=== PATIENT | female | born 1995 | race Caucasian/White ===

== ENCOUNTER 2020-11-04 10:38 | Outpatient (CLI) | payer OTHER, SELFPAY ==
--- NOTE | ~2020-11-04 | US_ITS ---
EXAMINATION: US abdomen limited DATE: 11/04/2020 11:21 INDICATION: Abdominal bloating TECHNIQUE: Multiple grayscale and Doppler ultrasound images of the abdomen were obtained. COMPARISON: 09/03/2011 FINDINGS: The head and body of the pancreas are normal. The pancreatic tail is obscured by bowel gas. The liver is normal with normal echogenicity and echotexture. No surface nodularity. Normal hepatope ric flow in the main portal vein. There is a 3 mm gallbladder polyp. No gallbladder wall thickening, stones, or pericholecystic fluid are identified. The normal common bile duct measures 3 mm. There was no sonographic Toscano sign. IMPRESSION: 1. No sonographic correlate for the patient's symptoms. 2. 3 mm gallbladder polyp. Reviewed, dictated and finalized at location A.
== END 2020-11-04 10:39 | disposition home or self-care (01) ==
PROVIDERS: PCP Registered Nurse; Visit Provider Registered Nurse
DX: R14.0 Abdominal distension (gaseous) (principal); K82.4 Cholesterolosis of gallbladder
CPT/HCPCS: 76705

== ENCOUNTER 2022-01-03 09:54 | Outpatient (CLI) | payer OTHER, SELFPAY | END 2022-01-03 09:55 | disposition home or self-care (01) | LOC: ANHLAB 09:57 | PROVIDERS: PCP Registered Nurse; Visit Provider Obstetrics & Gynecology | DX: R76.9 Abnormal immunological finding in serum, unspecified (principal) | CPT/HCPCS: 36415; 86850 ==

== ENCOUNTER 2022-05-16 12:57 | Outpatient (CLI) | payer OTHER, SELFPAY ==
[2022-05-16 13:22] VITALS: BP 128/87; PULSE 99
[2022-05-16 13:30] VITALS: BP 113/82; PULSE 113
[2022-05-16 13:30] LABS: Basophils Percent Auto 0.3 % (0.2-1.2); Eosinophils Percent Auto 0.3 % (0-4.4); Hematocrit 35.3 % (37.0-47.0); Hemoglobin 11.8 g/dL (12.0-15.0); Immature Granulocyte Absolute 0.04 K/mm3 (0.00-0.031); Immature Granulocyte Percent A 0.4 % (0-0.5); Lymphocytes Absolute Auto 2.01 K/mm3 (0.9-3.2); Mean Corpuscular HGB Conc 33.4 g/dl (32-36); Mean Corpuscular Hemoglobin 30.3 pg (26-34); Mean Corpuscular Volume 90.5 fl (80-100); Mean Platelet Volume 9.3 fl (7.4-10.4); Monocytes Absolute Auto 0.5 K/mm3 (0.1-0.6); Monocytes Percent Auto 4.6 % (2.6-8.5); Neutrophils Absolute Auto 7.5 K/mm3 (1.3-6.7); Neutrophils Percent Auto 74.4 % (45.5-73.1); Platelet Count Result 319 k/mm3 (150-375); Red Cell Distribution Width 12.8 % (11.5-14.5); White Blood Count 10.1 K/mm3 (4.5-10.0)
[2022-05-16 13:31] LABS: Appearance Urine Clear (Clear); Bilirubin Urine Negative (Negative); Blood Urine Negative (Negative); Color Urine Yellow (Yellow); Glucose Urine UA Negative (Negative); Ketones Urine 3+ mg/dL (Negative); Leukocyte Esterase Ur Negative LEU/UL (NEGATIVE); Nitrate Urine Negative (Negative); Protein Urine Negative (Negative); Specific Grav Ur 1.015 (1.001-1.035); Urobilinogen Urine 0.2 mg/dL (<2.0); pH Urine 6.5 (5.0-9.0)
[2022-05-16 13:38] LABS: Creatinine Urine 63.6 mg/dL; Total Protein Urine Random 15 mg/dL; Ur Ttl Prot Creatinine Ratio 0.24 mg/mg (0-0.20)
[2022-05-16 13:40] LABS: Alanine Aminotransferase 33 U/L (6-35); Albumin Level 3.4 g/dL (3.5-5.1); Alkaline Phosphatase 118 U/L (38-126); Anion Gap 4 mmol/L (8-16); Aspartate Amino Transferase 37 U/L (14-36); Bilirubin,Total 0.2 mg/dL (0.2-1.3); Blood Urea Nitrogen 6 mg/dL (7-17); Calcium 8.4 mg/dL (8.4-10.2); Carbon Dioxide 21 mmol/L (22-30); Chloride 105 mmol/L (98-107); Estimated Glomerular Filt Rate > 60; Glucose 106 mg/dL (65-110); Potassium 3.2 mmol/L (3.4-5.0); Sodium 130 mmol/L (137-145); Uric Acid 4.3 mg/dL (2.5-7.5)
[2022-05-16 13:43] LABS: Bacteria Urine Trace /hpf; Squamous Epithelial Cell Urine Rare /hpf (Few); WBC Urine 0-3 /hpf (0-3)
[2022-05-16 13:44] LABS: Add Urine Microscopic? YES
[2022-05-16 13:45] VITALS: BP 117/76; PULSE 89
[2022-05-16 14:00] VITALS: BP 118/70; PULSE 83
[2022-05-16] MEDS: ACETAMINOPHEN 500 MG TABLET 1000 MG PO (14:05)
[2022-05-16 14:23] VITALS: BP 118/70; PULSE 80
== END 2022-05-16 14:55 | disposition home or self-care (01) ==
LOC: ANHOBOP 13:09 → ANHOBPP 13:10
PROVIDERS: PCP Registered Nurse; Visit Provider Obstetrics & Gynecology
DX: O13.9 Gestational [pregnancy-induced] hypertension without significant proteinuria, unspecified trimester (principal); Z3A.00 Weeks of gestation of pregnancy not specified
CPT/HCPCS: 36415; 59025; 80053; 81001; 82570; 84156; 84550; 85025; 87086; 99199; A9270

== ENCOUNTER 2022-05-17 13:59 | Outpatient (NON) | payer OTHER, SELFPAY ==
[2022-05-17 14:16] VITALS: BMI 34.0
[2022-05-17 15:20] LABS: Collection Time Urine 24 HOURS
[2022-05-17 15:25] LABS: Total Volume 24 Hour Urine 2500 ml
[2022-05-17 15:44] LABS: Creatinine Clearance Urine 152.5 ml/min (75-125); Creatinine Urine 57.7 mg/dL; Patient Weight 192 Lbs; Total Protein Urine 24 Hr 425 mg/24hr (28-141); Total Protein Urine Random 17 mg/dL
== END 2022-05-17 14:00 | disposition home or self-care (01) ==
LOC: ANHOBOP 14:05
PROVIDERS: PCP Registered Nurse; Visit Provider Advanced Practice Midwife
DX: Z34.93 Encounter for supervision of normal pregnancy, unspecified, third trimester (principal); Z3A.00 Weeks of gestation of pregnancy not specified
CPT/HCPCS: 81050; 82575; 84156

== ENCOUNTER 2022-05-26 16:51 | Inpatient (IN) | payer OTHER, SELFPAY ==
[2022-05-26] VITALS (13 sets, daily range): BP systolic 122–144; BP diastolic 72–93; PULSE 62–79; RESP 16; TEMP 36.4–36.7; BMI 33.2
--- NOTE | 2022-05-26 17:41 | LDADM ---
This patient, Ting Srinivasan, was admitted to Labor/Delivery/Recovery 105 on 05/26/22 at 16:51. Plans for labor, pain management and were discussed with patient. Patient/family oriented to hospital policies and general routines including ID bracelet, bed and alarms, visiting hours, pain management, procedures, bathroom and other care routines, personal items, smoking policy, room service/diet and guest tray routines, security routines, and visiting hours. Patient/Family are encouraged to report perceived risks to care and to ask questions if they do not understand what they are told or what they should do. See OBIX for further documentation.
[2022-05-26 18:09] LABS: Basophils Percent Auto 0.3 % (0.2-1.2); Eosinophils Absolute Auto 0.1 K/mm3 (0-0.3); Eosinophils Percent Auto 0.4 % (0-4.4); Hematocrit 36.5 % (37.0-47.0); Immature Granulocyte Absolute 0.05 K/mm3 (0.00-0.031); Immature Granulocyte Percent A 0.4 % (0-0.5); Lymphocytes Absolute Auto 2.63 K/mm3 (0.9-3.2); Lymphocytes Percent Auto 22.8 % (18.3-44.2); Mean Corpuscular HGB Conc 32.9 g/dl (32-36); Mean Corpuscular Hemoglobin 30.5 pg (26-34); Mean Corpuscular Volume 92.6 fl (80-100); Mean Platelet Volume 10.4 fl (7.4-10.4); Monocytes Absolute Auto 0.6 K/mm3 (0.1-0.6); Monocytes Percent Auto 5.4 % (2.6-8.5); Neutrophils Absolute Auto 8.2 K/mm3 (1.3-6.7); Neutrophils Percent Auto 70.7 % (45.5-73.1); Platelet Count Result 329 k/mm3 (150-375); Red Blood Count 3.94 M/mm3 (4.2-5.4); Red Cell Distribution Width 12.7 % (11.5-14.5); White Blood Count 11.5 K/mm3 (4.5-10.0)
[2022-05-26] MEDS: DINOPROSTONE 10 MG VAG INSERT VAGINAL (18:20)
--- NOTE | 2022-05-26 19:37 | WPDANESEPP ---
Anes - Eval Pre Procedure Procedure: labor epidural Date/Time: 05/26/22 19:37 Pre Op Diagnosis: Induction of Labor Patient Data Age: 26 Gender: F Height: 1.6 m Weight: 85 kg Last Vital Signs Temp 36.7 C 05/26/22 17:57 Pulse 78 05/26/22 19:31 BP 134/88 05/26/22 19:31 O2 Del Method Room Air 05/26/22 17:40 Allergies Allergy/AdvReac Type Severity Reaction Status Date / Time sulfamethoxazole Allergy Severe Anaphylactic Verified 05/22/22 16:15 Shock latex Allergy Intermediate Itching Verified 05/22/22 16:15 trimethoprim Allergy Mild Anaphylactic Verified 05/22/22 16:15 Shock banana Allergy Itching Verified 05/22/22 16:15 Animal Dander Allergy Mild Congested Uncoded 05/22/22 16:15 Home Medications Medication Instructions Recorded Confirmed Type famotidine 20 mg tablet (Pepcid) 20 mg PO DAILY PRN Acid Reflux 05/22/22 05/22/22 History prenat.vits,aleena,nyl-ceut-hcveg 1 tablet PO HS 05/22/22 05/26/22 History Laboratory Tests 05/26/22 05/26/22 05/26/22 17:14 17:14 17:14 WBC 11.5 K/mm3 H K/mm3 (4.5-10.0) RBC 3.94 M/mm3 L M/mm3 (4.2-5.4) Hgb 12.0 g/dL g/dL (12.0-15.0) Hct 36.5 % L % (37.0-47.0) MCV 92.6 fl fl (80-100) MCH 30.5 pg pg (26-34) MCHC 32.9 g/dl g/dl (32-36) RDW 12.7 % % (11.5-14.5) Plt Count 329 k/mm3 k/mm3 (150-375) MPV 10.4 fl fl (7.4-10.4) Immature Gran % (Auto) 0.4 % % (0-0.5) Neut % (Auto) 70.7 % % (45.5-73.1) Lymph % (Auto) 22.8 % % (18.3-44.2) Colbert % (Auto) 5.4 % % (2.6-8.5) Eos % (Auto) 0.4 % % (0-4.4) Baso % (Auto) 0.3 % % (0.2-1.2) Lymph # (Auto) 2.63 K/mm3 K/mm3 (0.9-3.2) Colbert # (Auto) 0.6 K/mm3 K/mm3 (0.1-0.6) Eos # (Auto) 0.1 K/mm3 K/mm3 (0-0.3) Baso # (Auto) 0.0 K/mm3 K/mm3 (0.0-0.1) Abs Immat Gran (auto) 0.05 K/mm3 H K/mm3 (0.00-0.031) Absolute Neuts (auto) 8.2 K/mm3 H K/mm3 (1.3-6.7) Absolute Nucleated RBC 0.0 K/mm3 K/mm3 (0.0-0.012) Nucleated RBC % 0.0 % % (0.0-0.2) RPR Pending Blood Type A Positive Antibody Screen Negative Patient hx anesthesia problems: none Family hx anesthesia problems: none Results Review: All pre-operative results and documents have been reviewed as part of the pre-operative evaluation. [facility] Past Medical History Medical History (Updated 05/26/22 @ 19:38 by Cathy Macario CRNA) Pre-eclampsia added to pre-existing hypertension Family History Family History Grandparent Hypertension Grandparent Heart attack Social History Social History Smoking status: Never smoker Substance use: never Lack of Transportation: No Lack of Food: Never True Current Housing: I Have Housing Concerned About Future Housing: No Difficulty Paying Gas/Electric Bills: No Difficulty Paying for Meds: No Currently Unemployed: No Education: Master's Degree or Higher Difficulty w/ Childcare or Family Care: No Spiritual care concerns: No Exam Day of Procedure 05/26/22 19:37 Patient weight: obese Heart: regular rate and rhythm Lungs: normal air movement Airway: Mallampati scale Neurological: alert and oriented
[2022-05-27] VITALS (71 sets, daily range): BP systolic 111–243; BP diastolic 63–231; PULSE 58–120; RESP 18; TEMP 36.4–36.7; O2SAT 97–100
--- NOTE | 2022-05-27 08:47 | WPDHPUPDATE1 ---
History and Physical Update Update Date/Time: 05/27/22 08:47 this patient is a 26-year-old 1 at 37 weeks gestation and whose pregnancies complicated by preeclampsia, growth restriction, preeclampsia is marked by mildly elevated liver enzymes proteinuria. She is asymptomatic today and her blood pressures are stable. We began induction of labor with Cervidil, no change after 12 hours are unsatisfactory change we have inserted Cytotec. Reassuring heart tones. Patient plans to have epidural. History and Physical has been reviewed, including an updated exam of the patient. There are NO changes in the patient's condition. Risks, benefits, and alternatives have been discussed and questions answered. Patient agrees to proceed with procedure.
[2022-05-27] MEDS: miSOPROStol 25 MCG TABLET VAGINAL ×2 (08:50→13:33)
[2022-05-27 16:00] LABS: Rapid Plasma Reagin Non-Reactive (NonReactive)
[2022-05-27] MEDS: LACTATED RINGERS 1,000 ML 125 ML IV CONT (17:48)
[2022-05-27] MEDS: OXYTOCIN 30 UNITS/NS 500 ML 30 UNITS/500 ML BAG 6 UNITS IV CONT (17:48)
[2022-05-27] MEDS: DINOPROSTONE 10 MG VAG INSERT VAGINAL (18:38)
[2022-05-27] MEDS: ONDANSETRON INJ 4 MG/2 ML VIAL IV PUSH (20:53)
[2022-05-27] MEDS: fentaNYL CITRATE INJ (*CRX) 100 MCG/2 ML VIAL 50 MCG IV PUSH (21:20)
--- NOTE | 2022-05-27 23:12 | PM.OBPRVD ---
OB - Delivery Note Procedure Procedure: Induction method: Per Misoprostol Protocol, Per Pitocin Protocol and Per Cervidil Protocol Route of delivery: Episiotomy description: None Laceration Description: None and Periurethral (1st degree) Delivery repair: vicryl Quantitative Blood Loss (ml): 100 [place] Baby Date of : 05/27/22 Time of : 23:01 Weeks of gestation at delivery: 37 Weight (pounds): 5 Weight (ounces): 8 presentation: vertex Placenta delivery description: Spontaneous score one minute: 8 score five minutes: 9
[2022-05-28] VITALS (12 sets, daily range): BP systolic 110–134; BP diastolic 73–89; PULSE 73–94; RESP 16–18; TEMP 36.4–37.1; O2SAT 97–98
[2022-05-28 05:34] LABS: Hematocrit 32.4 % (37.0-47.0)
[2022-05-28] MEDS: DOCUSATE SODIUM 100 MG CAPSULE PO (09:53)
[2022-05-28] MEDS: MULTIVIT/MIN/PREN/FOL AC/IRON TABLET 1 TAB PO (09:53)
[2022-05-28] MEDS: LANOLIN (LANSINOH) 7.5 GM CREAM 1 APPLIC TOPICAL (09:53)
--- NOTE | 2022-05-28 11:55 | PM.OBPNVD ---
OB - PN: Subj Subjective Date/time seen: 05/28/22 11:55 Patient comments: no complaints, pain well controlled, incisional pain, tolerating diet and flatus present OB - PN: Obj Data Labs 05/28/22 05:22 Labs: Laboratory Results - last 24 hr 05/26/22 05/28/22 17:14 05:22 Hgb 11.0 L Hct 32.4 L RPR Non-reactive OB - PN A/P Plan day: 1 Plan: routine care Comments: No problems, routine care Time Spent With Patient Time: Total time spent is greater than 50% in coordination of care (as documented) at patient's floor/unit and/or counseling patient: Exam Const: General: comfortable, no acute distress and alert Resp: Effort & Inspection: normal respiratory effort Auscultation: no crackles, no rales and no rhonchi Cardio: Rate: regular rate Heart sounds: no click, no murmurs and no rubs GI: Inspection: non-distended GI Palp: No Tenderness to palpation present (GI) Auscultation: normal bowel sounds Other: Incision - CDI Extrem: General: normal to inspection, no pedal edema and no calf tenderness
--- NOTE | 2022-05-28 13:00 | WPDANLDPN2 ---
Anes-Prog Note L&D Date/Time: 05/28/22 13:00 Neuro status: Neuro function grossly intact. Vital Signs: Last Vital Signs Temp 37.1 C 05/28/22 12:00 Pulse 75 05/28/22 12:00 Resp 16 05/28/22 12:00 BP 129/76 05/28/22 12:00 Pulse Ox 98 05/28/22 12:00 O2 Del Method Room Air 05/26/22 17:40 Pain score (VAS): 0 I/O: Intake & Output 05/27/22 05/28/22 05/28/22 23:59 07:59 15:59 Intake Total 300 Output Total 100 Balance -100 300 Patient feedback: Patient satisfied with anesthetic care.
[2022-05-28] MEDS: IBUPROFEN 600 MG TABLET PO (14:00)
--- NOTE | 2022-05-28 15:30 | PC.NURSE ---
[id number] Introductions were made, then consulted with patient to assess needs related to . Mother led the conversation with her?plans to feed?her infant and the?experience so far. Mother requested assistance related to reluctant to wake and breastfeed being a late less than 24 hours old. Mother works well with her infant with encouragement and education. Encouraged understanding of the benefits of skin to skin (demonstrating unwrapping and placing vertically on her chest), responsive feeding and how to watch for early feeding signs, frequency of feeding on demand aiming for 8-12 times in 24 hours (every 2-3 hours), milk production, duration of feeding, signs of adequate intake/output, massage touch with changing 's position for stimulation, practicing the skill of hand expression, then finger feeding colostrum to her and how to record on the feeding sheet. Infant is sleepy and reluctant to wake to breastfeed. Discussed the risks and benefits of stimulating with pumping. Mother made an informed decision to initiate pumping. [id number] Breast pump provided due to ineffective . Instructions given on cleaning, care, usage, that there should be no pain, pumping schedule for milk production, collection, and storage of human milk. Parents are encouraged to record pumping schedule on the feeding sheet. Patient was assessed for correct placement, flange size, to pump for comfort and nipple stretching/stimulation for adequate milk production every 3 hours (8 times in 24 hours) 1-2 times at night. Mother voiced understanding of the education shared along with mom and baby guide for additional resource information. Reported to the primary RN. [phone] Consulted with patient to assist with encouraging . After stimulating infant S2S with massage touch and changing positioning for 20 minutes feeding cues were visualized. Mother was encouraged to practice sandwich holding her breast with cross cradle. Mother is uncomfortable with positioning and giving great efforts. Reviewed positioning and ear, shoulder, hip alignment, supporting the breast, asymmetrical latch (off-center), and leading with the chin with a big, open, wide gape. The couplet is disorganized and is guided with maximum assistance. Football position is more comfortable for mother but has less efforts in that position. A decision was made to use laid-back positioning to allow infant to demonstrate crawling and seeking the breast independently with efforts visualize. Infant latched optimally to the left breast in a laid-back position. Education given to mother of how to visualize suck/swallow ratios and drinking at the breast. was able to maintain latch without discomfort to mother for a few sucks on 5 different attempts; however, did not maintain adequate nursing duration. Decision was made to take a break, then mother will pump her breast for stimulation. Reviewed good handwashing when or touching the breast/nipples to prevent infection. Resources used to facilitate learning were used with the visual handouts, tool mom and baby guide. Mother voiced understanding of responsive feedings, stimulating with skin to skin, hand expressed colostrum, massage touch, talking to to encourage if it has been 2 -3 hours since the start of the last , to call if infant does not latch or there is discomfort with . Reported to the primary RN. [id number] Mother called RN to the room to check for colostrum after pumping. Evidence of pumping the areola was visualized and mother was encouraged to pump again with the assistance of the RN for placement of the flanges. Reported to Primary RN. [phone] Mother finger-fed the few drops of colostrum that was pumped to her . POC to continue to check 's blood sugars, use skin to skin, attempt to breastfeed and pump breast for stimulation. Mo
--- NOTE | 2022-05-28 16:36 | PC.NURSE ---
[id number] Purposefully rounded to assist with . rarely crawls, seeks and attempts to latch. When infant does latch it is shallow or not maintained for more than a few sucks. Mother is encouraged to practice skin to skin, attempting to latch infant when infant demonstrates feeding cues, pumping her breast for stimulation. Mother has decided to supplement her infant due to blood sugar dropping and infant's mouth becoming dry. Encouraged mother to pace bottle feed if she chooses to supplement with a bottle. Primary RN is present for POC.
[2022-05-29] MEDS: IBUPROFEN 600 MG TABLET PO (05:00)
[2022-05-29 08:05] VITALS: BP 135/90; PULSE 66; RESP 16; TEMP 37.2; O2SAT 99
--- NOTE | 2022-05-29 08:29 | PM.OBPNVD ---
OB - PN: Subj Subjective Date/time seen: 05/29/22 08:29 Patient comments: no complaints, pain well controlled and tolerating diet OB - PN: Obj Data Labs 05/28/22 05:22 OB - PN A/P Plan day: 2 Plan: routine care and discharge home Time Spent With Patient Time: Total time spent is greater than 50% in coordination of care (as documented) at patient's floor/unit and/or counseling patient: Exam Const: General: comfortable and no acute distress Resp: Effort & Inspection: normal respiratory effort Auscultation: no rales, no rhonchi and no wheezes Cardio: Rate: regular rate Heart sounds: no click, no murmurs and no rubs GI: GI Palp: Yes Soft to palpation and No Tenderness to palpation present (GI) Auscultation: normal bowel sounds Extrem: General: normal to inspection, no pedal edema and no calf tenderness
--- NOTE | 2022-05-29 08:30 | PM.OBDSVD ---
DS: Admitting Diagnosis Discharge Date 05/29/22 Admitting Diagnosis term OB - DS: Summary OB Procedures : None OB Procedures Intrapartum: Spontaneous Vag Delivery OB Procedures: : None Time Spent with Patient Time attestation: Total time spent providing and/or coordinating discharge services: DS: Data Data Completed and Pending Pending studies at discharge: Pending at discharge 05/28/22 01:57 Surgical [PTH] Routine Discharge Plan Discharge Discharging Clinician: Ugo Deng Patient Disposition: Home, Self-Care Activity: pelvic rest Diet: regular Patient Instructions: Antibiotic Form Stand Alone Forms: General Discharge Information Follow-up/Referrals: Ugo Deng MD [Physician] - Discharge Medications: Continued famotidine [Pepcid] 20 mg Tablet 20 mg PO DAILY PRN (Reason: Acid Reflux) #2 Tablet 1 tablet PO HS Date of admission: 05/26/22 16:51 Primary Care Provider: KathrineGayatri Admitting Provider: Ugo Deng Attending physician on admission: Ugo Deng Condition: Stable
[2022-05-29] MEDS: TETANUS,DIPHTHERIA,AC PERTUSSIS ADULT (0.5 ML) BOOSTRIX IM (11:45)
--- NOTE | 2022-05-29 15:21 | PC.NURSE ---
1144 - Mother led the conversation with her experience and plan to feed her so far and her ability to continue with the plan of attempting to breastfeed, pump breast for a milk supply, then supplement with formula until her milk is to full volume to feed . Mother is feeding appropriately for growth of and understands stimulating infant to eat if needed. has had appropriate feedings in the last 24 hours meets the outcomes for weight, output and jaundice at this time. Mother states she is confident to continue to feed her at home or when to call for assistance and denies any additional assistance or education at this time. Reinforced understanding of milk production, transition of milk, signs of adequate intake, prevention/relief of engorgement, responsive after visualizing feeding cues, the different methods of stimulating to breastfeed 2-3 hours after the start of the last feeding, community resources, medication information reviewed per [facility] and when to call a provider using the resource of the mom and baby guide. Mother voiced understanding of the education shared. Reported to the primary RN.
[2022-05-30 09:46] VITALS: BP 138/103; PULSE 76; RESP 16; TEMP 36.7; O2SAT 99
== END 2022-05-29 12:25 | disposition home or self-care (01) | DRG 807 ==
LOC: ANHLDR 16:55 → ANHOB2 05-28 01:45
PROVIDERS: Admitting Provider Obstetrics & Gynecology; PCP Registered Nurse; Visit Provider Obstetrics & Gynecology
DX: O14.04 Mild to moderate pre-eclampsia, complicating childbirth (principal); Z37.0 Single live birth; O70.0 First degree perineal laceration during delivery; O36.5930 Maternal care for other known or suspected poor fetal growth, third trimester, not applicable or unspecified; Z3A.37 37 weeks gestation of pregnancy
CPT/HCPCS: 36415; 85014; 85018; 85025; 86592; 86850; 86900; 86901; 88307; 90715; A9270; J2405; J2590; J2795; J3010; J7120

== ENCOUNTER 2023-02-11 16:24 | Emergency (ER) | payer OTHER, SELFPAY ==
--- NOTE | ~2023-02-11 | XR_ITS ---
EXAM: XR lumbar spine 2-3V DATE: 02/11/2023 17:47 HISTORY: Lower back pain, back spasms since 1 today. . COMPARISON: 01/19/2014. FINDINGS: 5 nonrib-bearing lumbar-type vertebral bodies. Bilateral partial L5 sacralization. Incompl ete posterior arch at L5. Pedicles intact. Normal vertebral body alignment. Vertebral body heights pr eserved. Disc spaces maintained. Normal facets and posterior elements. No fracture or dislocation. IMPRESSION: No acute fracture or traumatic malalignment detected in the lumbar spine. Reviewed, dictated and finalized at location K.
[2023-02-11 16:29] VITALS: BP 124/89; PULSE 81; RESP 16; TEMP 36.8; O2SAT 100
[2023-02-11] MEDS: SODIUM CHLORIDE 0.9% IV 1,000 ML 999 ML IV CONT (17:15)
[2023-02-11] MEDS: diazePAM INJ (*CRX) 10 MG/2 ML SYRINGE 2 MG IV PUSH (17:16)
[2023-02-11] MEDS: KETOROLAC 30 MG/ML VIAL (*BKC) IV PUSH (17:18)
--- NOTE | 2023-02-11 18:09 | ED.BACK ---
HPI - Back Pain/Injury General Chief Complaint: Back Pain/Injury Stated Complaint: back pain Time Seen by Provider: 02/11/23 16:35 History of Present Illness HPI Narrative: Patient is a 27-year-old female who presents ER with low back pain. Sudden onset this morning. Has waves of cramping. She was getting off the toilet when it started. No falls or injury. Recently diagnosed with COVID-19 after going on a [employer]. No chest pain or chest pressure or difficulty breathing at this time. No lower extremity numbness or weakness. No difficulty with urination/defecation. No known trauma. Related Data Home Medications Medication Instructions Recorded Confirmed famotidine 20 mg tablet (Pepcid) 20 mg PO DAILY PRN Acid Reflux 05/22/22 05/22/22 prenat.vits,aleena,cja-rxix-jkeuv 1 tablet PO HS 05/22/22 05/26/22 Allergies Allergy/AdvReac Type Severity Reaction Status Date / Time sulfamethoxazole Allergy Severe Anaphylactic Verified 02/11/23 16:31 Shock latex Allergy Intermediate Itching Verified 02/11/23 16:31 trimethoprim Allergy Mild Anaphylactic Verified 02/11/23 16:31 Shock banana Allergy Itching Verified 02/11/23 16:31 Animal Dander Allergy Mild Congested Uncoded 05/22/22 16:15 Review of Systems Review of Systems: All systems reviewed & are unremarkable except as noted in HPI and below Constitutional: Constitutional: Denies chills, Reports fatigue and Denies fever(s) ENT: Reports sore throat Respiratory: Respiratory: Reports cough, Denies dyspnea and Denies wheezing Musculoskeletal: Musculoskeletal: Reports back pain, Denies arthralgias and Denies joint swelling Neurologic: Denies syncope, Denies focal weakness and Denies numbness [facility] Past Medical History Medical History (Updated 02/11/23 @ 18:14 by Sarath Slater MD) Pre-eclampsia added to pre-existing hypertension Surgical History Surgical History (Updated 02/11/23 @ 18:14 by Sarath Slater MD) No pertinent past surgical history Family History Family History Grandparent Hypertension Grandparent Heart attack Social History Social History Smoking status: Never smoker Substance use: never Lack of Transportation: No Lack of Food: Never True Current Housing: I Have Housing Concerned About Future Housing: No Difficulty Paying Gas/Electric Bills: No Difficulty Paying for Meds: No Currently Unemployed: No Education: Master's Degree or Higher Difficulty w/ Childcare or Family Care: No Spiritual care concerns: No Exam Narrative: GENERAL: Well-appearing, well-nourished, and in no acute distress. HEAD: Normocephalic, atraumatic. CHEST: Clear to auscultation. No respiratory distress. HEART: Regular rate and rhythm. Normal peripheral pulses. Back: No reproducible midline tenderness of the T/L-spine. There is mild low back discomfort in the paraspinal musculature but no palpable spasm. EXTREMITIES: Normal range of motion. No edema. SKIN: Warm, dry, no rash. NEURO: Alert and oriented x3. PSYCH: Normal mood and affect. Course Course Emergency Course: Patient had increased pain after exam however it dissipated after medication. Vital Signs Vital signs: Vital Signs Temperature 98.2 F 02/11/23 16:29 Pulse Rate 81 02/11/23 16:29 Respiratory Rate 16 02/11/23 16:29 Blood Pressure 124/89 02/11/23 16:29 Pulse Oximetry 100 02/11/23 16:29 Temperature 98.2 F 02/11/23 16:29 Pulse Rate 81 02/11/23 16:29 Respiratory Rate 16 02/11/23 16:29 Blood Pressure 124/89 02/11/23 16:29 Pulse Oximetry 100 02/11/23 16:29 MDM - Back Pain/Injury MDM Narrative Medical decision making narrative: -Presentation: 27-year-old female presents to the ER with low back pain. -DDX includes but is not limited to: Muscle spasm, lumbar fracture, disc herniation.
== END 2023-02-11 18:26 | disposition home or self-care (01) ==
PROVIDERS: Emergency Provider Emergency Medicine; PCP Registered Nurse
DX: M62.830 Muscle spasm of back (principal)
CPT/HCPCS: 72100; 96374; 96375; 99284; J1885; J3360; J7030

== ENCOUNTER 2025-01-26 16:22 | Outpatient (CLI) | payer OTHER, SELFPAY ==
--- OUTSIDE RECORDS SUMMARY | 2025-01-26 16:34 | XMS_ITS | Encounter Summary ---
Author Organization [facility] Address [facility] [place] [address] Care Team Providers Care Crane Follower Name Role Phone Nicholas Chisholm Primary Care Provider [phone] Encounter Details Date Type Department Care Team (Late st Contact Info) Description 04/02/2021 [employer] Message Enc [facility] Family & Internal Medicine [facility] [address] [place] [address] Nicholas Chisholm APNP [address] [place] [address] RE: Follow Up/Update Social History Tobacco Use Types Packs/Day Years Used Date Smoking Tobacco: Never Smokeless Tobacco: Never Alcohol Use Standard Drinks/Week Comments Yes 0 (1 standard drink = 0.6 oz pur e alcohol) social. (weekneds.) PHQ-2 Answer Date Recorded PHQ-2 Score - If the patient scores above 3, please move on to questions 3-9 0 10/30/2020 Comments Unknown Sex and Gender Information Value Date Recorded Sex Assigned at Not on file Legal Sex Female 6:55 PM CDT Gender Identity Not on file Sexual Orientation Not on file COVID-19 Exposure Response Date Recorded In the last month, have you been in contact with someone who was confirmed or suspected to have Coronavirus / COVID-19? No / Unsure 04/04/2021 9:20 AM CDT documented as of this encounter Plan of Treatment Not on file documented as of this encounter Results * XR KNEE LT 3V (04/04/2021 9:27 AM CDT) Anatomical Region Laterality Modality Knee Radiographic Stefanie ging 04/04/2021 11:2 3 AM CDT Impressions 04/04/2021 11:24 AM CDT IMPRESSION: No significant radiographic abnormality. Referred By: NICHOLAS CHISHOLM Interpreted By: Quan Layton MD, 04/04/2021 11:23 AM Narrative 04/04/2021 11:24 AM CDT Examination: XR KNEE LT 3V Exam time: 04/04/2021 9:20 AM Clinical history: Pain left knee. No known injury. Comparison: No prior exam Technique: AP, lateral, and sunrise views Findings: Medial, lateral, and patellofemoral joint spaces appear normal. No evidence of fracture or acute osseous abnormality. No radiographic evidence of joint effusion. Quadriceps and patella tendon soft tissue densities appear normal. If symptoms continue, follow-up left knee radiograph could be obtained in 10-14 days to evaluate for potential occult osseous healing changes. Procedure Note Quan Layton MD - 04/04/2021 Examination: XR KNEE LT 3V Exam time: 04/04/2021 9:20 AM Clinical history: Pain left knee. No known injury. Comparison: No prior exam Technique: AP, lateral, and sunrise views Findings: Medial, lateral, and patellofemoral joint spaces appear normal.No evidence of fracture or acute osseous abnormality. No radiographicevidence of joint effusion. Quadriceps and patella tendon soft tissuedensities appear normal. If symptoms continue, follow-up left kneeradiograph could be obtained in 10-14 days to evaluate for potentialoccult osseous healing changes. IMPRESSION: No significant radiographic abnormality. Referred By: NICHOLAS CHISHOLM Interpreted By: Quan Layton MD, 04/04/2021 11:23 AM us Nicholas Chisholm APNP GENERAL IMAGING Final Resul t documented in this encounter Visit Diagnoses Diagnosis Left knee pain- Primary Pain in joint, lower leg documented in this encounter Additional Health Concerns Assessment Noted Time PHQ-9 Depression Total Score: 3 10/31/19 21 11:38 AM CDT documented as of this encounter Care Teams Crane Follower Relationship Specialty Start Date End Date Nicholas Chisholm APNP [address] [place] [id number] PCP - General NURSE PRACTITIONER 10/30/20 documented as of this encounter
--- OUTSIDE RECORDS SUMMARY | 2025-01-26 16:34 | XMS_ITS | Encounter Summary ---
Author Organization [facility] Address [facility] [place] [address] Care Team Providers Care Primer Charger Name Role Phone Gayatri Chisholm Primary Care Provider [phone] Encounter Details Date Type Department Care Team (Late st Contact Info) Description 10/22/2022 [employer] Message Enc [facility] Family & Internal Medicine [facility] [address] [place] [address] Gayatri Chisholm APNP [address] [place] [address] Sinus infection/medication Social History Tobacco Use Types Packs/Day Years [...] on file Sexual Orientation Not on file documented as of this encounter Progress Notes * Katya Neves MA - 10/28/2022 3:34 PM CDT Telephoned pt. Left message on letting her know Gayatri does not think it would be safe to take prednisone while breast feeding. She can contact office with any questions are concerns via are my chart. * DONOVAN Fernandez - 10/28/2022 3:33 PM CDT If she is , I do not think prednisone would be safe. * Selin Quinones - 10/27/2022 2:23 PM CDT Pt. Called a back and states she not but is breast feeding and relayed the message. Unaware if medications can be taken while breast feeding so a message was sent back to provider * Chaparrita Bass MA - 10/27/2022 2:13 PM CDT This CAITIE left voicemail for patient to return call to office 10/27/22 and [employer] message sent to patient. * DONOVAN Fernandez - 10/27/2022 12:42 PM CDT Can reach out to pt and if no chance of , we can send over a few days of prednisone if shecan tolerates steroids. Prednisone 20 mg, take 2 tabs once daily for 2 days and one tab once daily for 2 days, #6, no refills * DONOVAN Fernandez - 10/27/2022 12:41 PM CDTFrom: Ting Srinivasan To: Gayatri Chisholm Sent: 10/22/2022 11:59 PM CDT Subject: Sinus infection/medication Hello, So I???ve had a bad sinus infection since , last week and it feels like it isn???t getting any better. I had an appointment with [facility] on Thursday, since you don???t have any available appointments right now. They prescribed me amoxicillin, which I started Thursday night. I would contact the m again but my insurance isn???t accepted through them. But, I???ve had muffled and fullness in my ears since Thursday, and it???s only getting worse. Is there anything you can give me to help with that. It is driving me crazy, and I actually think that???s what making feel worse. Thank you, Ting Srinivasan documented in this encounter Plan of Treatment Not on file documented as of this encounter Visit Diagnoses Not on filedocumented in this encounter Additional Health Concerns Assessment Noted Time PHQ-9 Depression Total Score: 3 10/31/19 21 11:38 AM CDT documented as of this encounter Care Teams Primer Charger Relationship Specialty Start Date End Date Gayatri Chisholm APNP [address] [place] [id number] PCP - General NURSE PRACTITIONER 10/30/20 documented as of this encounter
--- OUTSIDE RECORDS SUMMARY | 2025-01-26 16:34 | XMS_ITS | Clinical Summary ---
Author Organization [facility] Address [facility] [place] [address] Care Team Providers Care Public Health Assistant Name Role Phone Kathrine Gayatri Sergo MAN Primary Care Provider Allergies Active Allergy Reactions Criticality Noted Date Comments Banana Unknown 06/02/2013 Sulfamethoxazole-Trimethopr im Hives,Shortness of Breath High 06/02/2013 Medications 28-0.8 MG tablet Take 1 tablet by mouth daily. Active omeprazole (PRILOSEC) 20 MG capsuleIndications: Left upper quadrant pain Take 1 capsule (20 mg total) by mouth daily. 30 capsule 1 4 Active ondansetron (ZOFRAN-ODT) 4 MG disintegrating tabletIndications:N ausea Take 1 tablet (4 mg total) by mouth every 8 (eight) hours as needed. 20 tablet 4 Active Active Problems No known active problems Immunizations Immunization Administration Dates Next Due Influenza (Generic) 03/14/2019 Influenza Adult (Generic) 04/19/2024,03/17/2016, 07/25/2015 MMR 08/02/2015,01/29/1999,10/08/1994 Opv 01/29/1999,01/07/1994,1993 ,1993 Tdap (Generic) 08/02/2015 Family History Medical History Relation Comments COPD Maternal Grandfather leukemia Maternal Grandfather COPD Maternal Grandmother Hypertension Maternal Grandmother Stroke Maternal Grandmother Arthritis Mother Asthma Mother Heart Attack Paternal Grandfather Colon Cancer Paternal Grandmother Relation Status Comments Father Alive Maternal Grandfather Alive Maternal Grandmother Alive Mother Alive Paternal Grandfather Paternal Grandmother Sister Alive Social History Tobacco Use Types Packs/Day Years Used Date Smoking Tobacco: Never Smokeless Tobacco: Never Tobacco Cessation:Counseling Given: No Alcohol Use Standard Drinks/Week Comments Yes 0 (1 standard drink = 0.6 oz pur e alcohol) social. (weekneds.) PHQ-2 Answer Date Recorded PHQ-2 Score - If the patient scores above 3, please move on to questions 3-9 0 10/30/2020 Comments No Sex and Gender Information Value Date Recorded Sex Assigned at Not on file Legal Sex Female 6:55 PM CDT Gender Identity Not on file Sexual Orientation Not on file Last Filed Vital Signs Vital Sign Reading Time Taken Comments Blood Pressure 116/72 05/26/2024 11:32 AM SHIPPING LEAD PERSON Pulse 82 05/26/2024 11:32 AM SHIPPING LEAD PERSON Temperature 36.7 C (98 F) 05/26/2024 11:32 AM SHIPPING LEAD PERSON Respiratory Rate 18 05/26/2024 11:32 AM SHIPPING LEAD PERSON Oxygen Saturation 99% 05/26/2024 11:32 AM SHIPPING LEAD PERSON Inhaled Oxygen Concentration - - Weight 75 kg (165 lb 4.8 oz) 05/26/2024 11:32 AM SHIPPING LEAD PERSON Height 162.6 cm (5' 4) 05/26/2024 11:32 AM SHIPPING LEAD PERSON Body Mass Index 28.37 05/26/2024 11:32 AM SHIPPING LEAD PERSON Plan of Treatment Health Maintenance Due Date Last Done Comments Annual Physical 1996 Hepatitis B Vaccines (1 of 3 - 19+ 3-dose series) 2012 HPV Vaccines (1 - 3-dose SCD M series) 2020 Cervical Cancer Screening Pa p with HPV Testing (Age 30 to 64) Every 5 Years 2023 11/13/2021 COVID-19 Vaccine ( - 2023-2 5 season) 2024 PHQ-2 (Physician [place]) 06/15/2024 DTaP, Tdap and Td Vaccines ( 2 - Td or Tdap) 08/02/2025 08/02/2015 Cervical Cancer Screening Pa p Smear (Age 30 to 64) Every 3 Years 01/01/2026 01/01/2023, 11/13/2021, 11/08/2020 Cervical Cancer Screening wi th HPV 01/01/2026 Hepatitis C Completed 12/05/2021, 12/05/2021 Meningococcal B Vaccine Aged Out No l onger eligible based on patient's age to complete this topic Meningococcal Vaccine Aged Out No verena sandra eligible based on patient's age to complete this topic Pneumococcal Vaccine: Pediatrics (0 to 5 Years) and At-Risk Patients (6 to 49 Years) Aged Out No longer eligible b ased on patient's age to complete this topic RSV Immunizations Under 20 Months Aged Out No longer eligible b ased on patient's age to complete this topic Insurance [employer] Care Teams Public Health Assistant Relationship Specialty Start Date End Date Gayatri Chisholm APNP [address] [place] [id number] PCP - General NURSE PRACTITIONER 10/30/20
[2025-01-26 16:45] VITALS: BP 123/78; PULSE 84
[2025-01-26 16:46] VITALS: BP 121/83; PULSE 69
[2025-01-26 17:00] VITALS: BP 117/81; PULSE 80
[2025-01-26 17:07] LABS: Add Urine Microscopic? YES; Appearance Urine Clear (Clear); Glucose Urine UA Negative (Negative); Hematocrit 32.7 % (37.0-47.0); Hemoglobin 11.1 g/dL (12.0-15.0); Immature Granulocyte Percent A 0.5 % (0-0.5); Leukocyte Esterase Ur 2+ LEU/UL (Negative); Lymphocytes Absolute Auto 2.88 K/mm3 (0.9-3.2); Mean Corpuscular HGB Conc 33.9 g/dl (32-36); Mean Corpuscular Hemoglobin 30.4 pg (26-34); Mean Corpuscular Volume 89.6 fl (80-100); Nitrate Urine Negative (Negative); Non Pathogenic Casts 0-2; Nucleated Red Blood Cells Absolute Auto 0.000 K/mm3 (0.0-0.012); Nucleated Red Blood Cells Perc 0.0 % (0.0-0.2); Platelet Count Result 301 k/mm3 (150-375); Red Blood Count 3.65 M/mm3 (4.2-5.4); Specific Grav Ur 1.003 (1.001-1.035); White Blood Count 13.0 K/mm3 (4.5-10.0)
[2025-01-26 17:15] VITALS: BP 121/82; PULSE 79
[2025-01-26 17:15] LABS: Alanine Aminotransferase 11 U/L (6-35); Albumin Level 3.4 g/dL (3.5-5.1); Alkaline Phosphatase 110 U/L (38-126); Anion Gap 7 mmol/L (4-12); Aspartate Amino Transferase 24 U/L (14-36); Bilirubin,Total 0.2 mg/dL (0.2-1.3); Blood Urea Nitrogen 7 mg/dL (7-17); Calcium 8.6 mg/dL (8.4-10.2); Carbon Dioxide 19 mmol/L (22-30); Chloride 107 mmol/L (98-107); Estimated Glomerular Filt Rate > 60; Glucose 73 mg/dL (65-110); Potassium 3.7 mmol/L (3.4-5.0); Sodium 133 mmol/L (137-145); Total Protein 6.8 g/dL (6.3-8.2); Uric Acid 4.3 mg/dL (2.5-7.5)
[2025-01-26 17:30] VITALS: BP 119/79; PULSE 76
[2025-01-26 17:32] LABS: Total Protein Urine Random 14 mg/dL; Ur Ttl Prot Creatinine Ratio 0.69 mg/mg (0-0.20)
[2025-01-26 17:45] VITALS: BP 117/76; PULSE 76
--- NOTE | 2025-01-26 17:46 | PC.NURSE ---
Called Dr. Wynn with lab results. Discussed Hgb, Plt, Na, K+, uric acid, AST, ALT, Urine protein and PC ratio. Discussed BP in normal ranges 110s/70s. PC ratio elevated to 0.69 with negative urine protein. Order received to discharge pt. home and for pt. to continue to monitor BP at home and symptoms.
== END 2025-01-26 17:55 | disposition home or self-care (01) ==
LOC: ANHOBOP 16:29 → ANHOBPP 16:33
PROVIDERS: PCP Registered Nurse; Visit Provider Obstetrics & Gynecology
DX: O13.9 Gestational [pregnancy-induced] hypertension without significant proteinuria, unspecified trimester (principal); Z3A.00 Weeks of gestation of pregnancy not specified
CPT/HCPCS: 36415; 59025; 80053; 81001; 82570; 84156; 84550; 85025; 87086; 99199

== ENCOUNTER 2025-02-24 13:10 | Inpatient (IN) | payer OTHER, SELFPAY ==
[2025-02-24] VITALS (58 sets, daily range): BP systolic 58–134; BP diastolic 26–106; PULSE 54–284; RESP 18; TEMP 36.6–36.8; O2SAT 93–100; BMI 31.6
[2025-02-24 13:54] LABS: Hematocrit 34.3 % (37.0-47.0); Hemoglobin 11.8 g/dL (12.0-15.0); Immature Granulocyte Percent A 0.4 % (0-0.5); Lymphocytes Absolute Auto 2.31 K/mm3 (0.9-3.2); Mean Corpuscular HGB Conc 34.4 g/dl (32-36); Mean Corpuscular Hemoglobin 30.0 pg (26-34); Mean Corpuscular Volume 87.3 fl (80-100); Nucleated Red Blood Cells Absolute Auto 0.000 K/mm3 (0.0-0.012); Nucleated Red Blood Cells Perc 0.0 % (0.0-0.2); Platelet Count Result 306 k/mm3 (150-375); Red Blood Count 3.93 M/mm3 (4.2-5.4); White Blood Count 11.2 K/mm3 (4.5-10.0)
--- OUTSIDE RECORDS SUMMARY | 2025-02-24 13:57 | XMS_ITS | Encounter Summary ---
Author Organization [facility] Address [facility] [place] [address] Care Team Providers Care Die Cutter Operator Name Role Phone Gayatri Chisholm Primary Care Provider [phone]- [phone] Encounter Details Date Type Department Care Team (Late st Contact Info) Description 10/22/2022 [employer] Message Enc [facility] Medical Group Family & Internal Medicine [facility] [address] [place] [address] Gayatri Chisholm APNP [address] [place] [address] Sinus infection/medication Social History Tobacco [...] to return call to office 10/27/22 and [employer] Receive message sent to patient. * DONOVAN Fernandez [...] any better. I had an appointment with [facility] on Thursday, since you don???t have [...] documented as of this encounter Care Teams Die Cutter Operator Relationship Specialty Start Date End Date Gayatri Chisholm APNP [address] [place] [id number] PCP - General NURSE PRACTITIONER 10/30/20 documented as of this encounter
--- OUTSIDE RECORDS SUMMARY | 2025-02-24 13:57 | XMS_ITS | Clinical Summary ---
Author Organization [facility] Address [facility] [place] [address] Care Team Providers Care Editor House Organ Name Role Phone Gayatri Chisholm RODAMARILIS Primary Care Provider [phone] Allergies Active Allergy Reactions Criticality Noted Date [...] Active Active Problems No known active problems Encounters Date Type Department Care Team Description 01/26/2025 Scan [facility] INFO SRVCS Scanned, Doc Med Group Lab (SCAN) from Last 3 Months Immunizations Immunization Administration Dates Next Due Influenza [...] Comments Blood Pressure 116/72 05/26/2024 11:32 AM SAS ANALYST Pulse 82 05/26/2024 11:32 AM SAS ANALYST Temperature 36.7 C (98 F) 05/26/2024 11:32 AM SAS ANALYST Respiratory Rate 18 05/26/2024 11:32 AM SAS ANALYST Oxygen Saturation 99% 05/26/2024 11:32 AM SAS ANALYST Inhaled Oxygen Concentration - - Weight 75 kg (165 lb 4.8 oz) 05/26/2024 11:32 AM SAS ANALYST Height 162.6 cm (5' 4) 05/26/2024 11:32 AM SAS ANALYST Body Mass Index 28.37 05/26/2024 11:32 AM SAS ANALYST Plan of Treatment Health Maintenance Due Date Last Done Comments Annual Physical 1996 Hepatitis B Vaccines (1 of 3 - 19+ 3-dose series) 2012 HPV Vaccines (1 - 3-dose SCD M series) 2020 Cervical Cancer Screening Pa p with HPV Testing (Age 30 to 64) Every 5 Years 2023 11/13/2021 PHQ-2 (Physician [place]) 06/15/2024 COVID-19 Vaccine (1 - 2023-2 5 season) 2025 DTaP, Tdap and Td Vaccines ( 2 [...] on patient's age to complete this topic Procedures Procedure Name Priority Date/Time Associated Diagnosis Comments OUTSIDE LAB (SCAN ORDER) 01/26/2025 OUTSIDE LAB (SCAN ORDER) 01/26/2025 from Last 3 Months Results * OUTSIDE LAB (SCAN ORDER) (01/26/2025) Only the most recent of2 resultswithin the time period is included. 01/26/2025 us Doc [facility] Scanned SCANNING Final Resu lt from Last 3 Months Insurance [facility] Care Teams Editor House Organ Relationship Specialty Start Date End Date Gayatri Chisholm APNP [facility] [place] [address] PCP - General NURSE PRACTITIONER 10/30/20
--- OUTSIDE RECORDS SUMMARY | 2025-02-24 13:57 | XMS_ITS | Encounter Summary ---
Author Organization [facility] Address [facility] [place] [address] Care Team Providers Care Political Scientist Name Role Phone Nicholas Chisholm Primary Care Provider [phone] Encounter Details Date Type Department Care Team (Late st Contact Info) Description 04/02/2021 [employer] Message Enc [facility] Medical Group Family & Internal Medicine [facility] [address] [place] [address] Nicholas Chisholm APNP [address] [place] [address] RE: Follow Up/Update Social History [...] documented as of this encounter Care Teams Political Scientist Relationship Specialty Start Date End Date Nicholas Chisholm APNP [address] [place] [id number] PCP - General NURSE PRACTITIONER 10/30/20 documented as of this encounter
--- NOTE | 2025-02-24 14:16 | LDADM ---
This patient, Ting Bowden, was admitted to Labor/Delivery/Recovery 107 on 02/24/25 at 13:10. Plans for labor, pain management and were discussed with patient. Patient/family oriented to hospital policies and general routines including ID bracelet, bed and alarms, visiting hours, pain management, procedures, bathroom and other care routines, personal items, smoking policy, room service/diet and guest tray routines, security routines, and visiting hours. Patient/Family are encouraged to report perceived risks to care and to ask questions if they do not understand what they are told or what they should do. See OBIX for further documentation.
[2025-02-24 14:45] LABS: Syphilis IgG/IgM Antibody Non-Reactive (Nonreactive)
[2025-02-24 15:29] LABS: Alanine Aminotransferase 14 U/L (6-35); Albumin Level 3.5 g/dL (3.5-5.1); Alkaline Phosphatase 152 U/L (38-126); Anion Gap 10 mmol/L (4-12); Aspartate Amino Transferase 24 U/L (14-36); Bilirubin,Total 0.2 mg/dL (0.2-1.3); Blood Urea Nitrogen 9 mg/dL (7-17); Calcium 8.7 mg/dL (8.4-10.2); Carbon Dioxide 16 mmol/L (22-30); Chloride 106 mmol/L (98-107); Estimated Glomerular Filt Rate > 60; Glucose 110 mg/dL (65-110); Potassium 3.5 mmol/L (3.4-5.0); Sodium 132 mmol/L (137-145); Total Protein 6.9 g/dL (6.3-8.2); Uric Acid 5.6 mg/dL (2.5-7.5)
--- NOTE | 2025-02-24 16:49 | WPDANESEPP ---
Anes - Eval Pre Procedure Procedure: Labor epidural Date/Time: 02/24/25 16:49 Surgeon: Sowmya Preop Diagnosis: Abdominal pain with contractions Pre Op Diagnosis: IOL Patient Data Age: 29 Gender: F Height: 1.6 m Weight: 81 kg Last Vital Signs Pulse 83 02/24/25 16:31 BP 130/88 02/24/25 16:31 O2 Del Method Room Air 02/24/25 14:15 Allergies Allergy/AdvReac Type Severity Reaction Status Date / Time sulfamethoxazole Allergy Severe Anaphylactic Verified 02/08/25 14:10 Shock latex Allergy Intermediate Itching Verified 02/08/25 14:10 trimethoprim Allergy Mild Anaphylactic Verified 02/08/25 14:10 Shock banana Allergy Itching Verified 02/08/25 14:10 Animal Dander Allergy Mild Congested Uncoded 02/08/25 14:10 Home Medications ?Medication ?Instructions ?Recorded ?Confirmed ?Type prenat.vits,aleena,egp-laqy-pibhz 1 tablet PO HS 05/22/22 02/24/25 History aspirin 81 mg tablet,delayed 81 mg PO DAILY 01/26/25 02/24/25 History release (Adult Aspirin Regimen) Laboratory Tests 02/24/25 02/24/25 13:45 13:45 WBC 11.2 H K/mm3 (4.5-10.0) RBC 3.93 L M/mm3 (4.2-5.4) Hgb 11.8 L g/dL (12.0-15.0) Hct 34.3 L % (37.0-47.0) MCV 87.3 fl (80-100) MCH 30.0 pg (26-34) MCHC 34.4 g/dl (32-36) RDW 12.6 % (11.5-14.5) Plt Count 306 k/mm3 (150-375) MPV 9.5 fl (7.4-10.4) Immature Gran % (Auto) 0.4 % (0-0.5) Neut % (Auto) 74.4 H % (45.5-73.1) Lymph % (Auto) 20.6 % (18.3-44.2) [place] % (Auto) 4.2 % (2.6-8.5) Eos % (Auto) 0.1 % (0-4.4) Baso % (Auto) 0.3 % (0.2-1.2) Lymph # (Auto) 2.31 K/mm3 (0.9-3.2) [place] # (Auto) 0.5 K/mm3 (0.1-0.6) Eos # (Auto) 0.0 K/mm3 (0-0.3) Baso # (Auto) 0.0 K/mm3 (0.0-0.1) Abs Immat Gran (auto) 0.04 H K/mm3 (0.00-0.031) Absolute Neuts (auto) 8.4 H K/mm3 (1.3-6.7) Absolute Nucleated RBC 0.000 K/mm3 (0.0-0.012) Nucleated RBC % 0.0 % (0.0-0.2) Sodium 132 L mmol/L (137-145) Potassium 3.5 mmol/L (3.4-5.0) Chloride 106 mmol/L (98-107) Carbon Dioxide 16 L mmol/L (22-30) Anion Gap 10 mmol/L (4-12) BUN 9 mg/dL (7-17) Creatinine 0.82 mg/dL (0.7-1.0) Estim Creat Clear Calc Not Reportable Estimated GFR > 60 (59 - ) Glucose 110 mg/dL (65-110) Uric Acid Cancelled 5.6 mg/dL (2.5-7.5) Calcium 8.7 mg/dL (8.4-10.2) Total Bilirubin 0.2 mg/dL (0.2-1.3) AST 24 U/L (14-36) ALT 14 U/L (6-35) Alkaline Phosphatase 152 H U/L (38-126) Total Protein 6.9 g/dL (6.3-8.2) Albumin 3.5 g/dL (3.5-5.1) Syphilis IgG/IgM Ab Non-reactive (Nonreactive) Blood Type A Positive Antibody Screen Negative : gestational age HCG: positive Patient hx anesthesia problems: none Family hx anesthesia problems: none Results Review: All pre-operative results and documents have been reviewed as part of the pre-operative evaluation. [facility] Past Medical History Medical History Overweight (BMI 25.0-29.9) Pre-eclampsia added to pre-existing hypertension Surgical History Surgical History No pertinent past surgical history Family History Family History Grandparent Hypertension Grandparent Heart attack Social History Social History Smoking status: Never smoker Substance use: never Lack of Transportation: No Lack of Food: Never True Current Housing: I Have Housing Concerned About Future Housing: No Difficulty Paying Gas/Electric Bills: No Difficulty Paying for Meds: No Currently Unemployed: No Education: Master's Degree or Higher Difficulty w/ Childcare or Family Care: No Spiritual care concerns: No Exam Day of Procedure 02/24/25 16:49 Patient weight: overweight
--- NOTE | 2025-02-24 18:11 | WPDHPUPDATE1 ---
History and Physical Update Update Date/Time: 02/24/25 18:11 29-year-old female at term has developed preeclampsia. Agree to induce today. She has gotten 1 dose of Cytotec. Her cervix is now favorable. Artificial rupture membranes was performed. Clear fluid. 3 cm, 50%, -2. Active management of labor likely to start Pitocin. Repeat reassuring status. History and Physical has been reviewed, including an updated exam of the patient. There are NO changes in the patient's condition. Risks, benefits, and alternatives have been discussed and questions answered. Patient agrees to proceed with procedure.
[2025-02-24] MEDS: fentaNYL CITRATE INJ (*CRX) 100 MCG/2 ML VIAL 50 MCG IV PUSH (18:25)
[2025-02-24] MEDS: LACTATED RINGERS 1,000 ML 125 ML IV CONT ×2 (20:01→20:46)
[2025-02-24] MEDS: OXYTOCIN 30 UNITS/NS 500 ML 30 UNITS/500 ML BAG 999 UNITS IV CONT (22:11)
--- NOTE | 2025-02-24 22:16 | PM.OBPRVD ---
OB - Vaginal Delivery Note Procedure Delivery date: 02/24/25 Events: Preeclampsia w severe features Induction method: AROM, Per Misoprostol Protocol and Per Pitocin Protocol Delivery monitor: External FHT and External Uterine Route of delivery: Episiotomy description: None Laceration Description: None Specimen: No Quantitative Blood Loss (ml): 200 Anesthesia type: Epidural Disposition: Floor Complications: No immediate complications
[2025-02-24] MEDS: OXYTOCIN 30 UNITS/NS 500 ML 30 UNITS/500 ML BAG 125 UNITS IV CONT (22:49)
--- NOTE | 2025-02-25 00:45 | OBPPTRN ---
Patient transferred to post room #290 via wheelchair. Support person present. Oriented to unit, room, information board, rooming in, admission packet and security measures. Patient verbalizes understanding.
[2025-02-25 01:00] VITALS: BP 119/81; PULSE 67; RESP 17; TEMP 36.7; O2SAT 99
[2025-02-25 05:06] LABS: Hematocrit 33.3 % (37.0-47.0); Hemoglobin 11.2 g/dL (12.0-15.0)
[2025-02-25 05:18] VITALS: BP 108/86; PULSE 80; RESP 16; TEMP 36.5; O2SAT 100
[2025-02-25 08:10] VITALS: BP 110/74; PULSE 69; RESP 16; TEMP 36.5; O2SAT 97
[2025-02-25] MEDS: IBUPROFEN 600 MG TABLET PO ×2 (08:33→20:45)
[2025-02-25] MEDS: MULTIVIT/MIN/PREN/FOL AC/IRON TABLET 1 TAB PO (08:35)
[2025-02-25] MEDS: DOCUSATE SODIUM 100 MG CAPSULE PO ×2 (08:35→17:26)
--- NOTE | 2025-02-25 11:38 | WPDANLDPN2 ---
Anes-Prog Note L&D Date/Time: 02/25/25 11:38 Comfortable throughout: labor and delivery Neuraxial method: epidural Epidural/Spinal procedure site: clean & non-tender Neuro status: Neuro function grossly intact. Cardiovascular status: normal Respiratory status: normal Airway patency: baseline Mental status: baseline Post-Op hydration status: normal Vital Signs: Last Vital Signs Temp 36.5 C 02/25/25 08:10 Pulse 69 02/25/25 08:10 Resp 16 02/25/25 08:10 BP 110/74 02/25/25 08:10 Pulse Ox 97 02/25/25 08:10 O2 Del Method Room Air 02/25/25 01:00 Pain score (VAS): 2 I/O: Intake & Output 02/24/25 02/25/25 02/25/25 23:59 07:59 15:59 Intake Total 93.8 Output Total 200 1600 Balance -106.2 -1600 Post-procedural complaints: none Patient feedback: Patient satisfied with anesthetic care.
[2025-02-25 12:14] VITALS: BP 120/66; PULSE 67; RESP 14; TEMP 36.8; O2SAT 97
--- NOTE | 2025-02-25 12:20 | PC.NURSE ---
Introductions were made, then consulted with patient to assess needs related to . Mother led the conversation with her?plans to feed?her infant and the?experience so far. Mother states that has been very gaggy/spitty which has made it difficult to get infant to nurse and/or eat from the bottle. Mother is able to independently latch when shows interest. Patient declined needing assistance at this time and states that she will call this RN if she has difficult waking infant for next feeding.
--- NOTE | 2025-02-25 13:39 | P.PNOB_ITS ---
OB - PN: Subj Subjective Date/time seen: 02/25/25 13:39 Patient comments: no complaints, pain well controlled, incisional pain, tolerating diet and flatus present OB - PN: Obj Data Labs 02/25/25 04:52 02/24/25 13:45 Labs: Laboratory Results - last 24 hr 02/24/25 02/24/25 02/25/25 13:45 13:45 04:52 WBC 11.2 H RBC 3.93 L Hgb 11.8 L 11.2 L Hct 34.3 L 33.3 L MCV 87.3 MCH 30.0 MCHC 34.4 RDW 12.6 Plt Count 306 MPV 9.5 Immature Gran % (Auto) 0.4 Neut % (Auto) 74.4 H Lymph % (Auto) 20.6 [place] % (Auto) 4.2 Eos % (Auto) 0.1 Baso % (Auto) 0.3 Lymph # (Auto) 2.31 [place] # (Auto) 0.5 Eos # (Auto) 0.0 Baso # (Auto) 0.0 Abs Immat Gran (auto) 0.04 H Absolute Neuts (auto) 8.4 H Absolute Nucleated RBC 0.000 Nucleated RBC % 0.0 Sodium 132 L Potassium 3.5 Chloride 106 Carbon Dioxide 16 L Anion Gap 10 BUN 9 Creatinine 0.82 Estim Creat Clear Calc Not Reportable Estimated GFR > 60 Glucose 110 Uric Acid Cancelled 5.6 Calcium 8.7 Total Bilirubin 0.2 AST 24 ALT 14 Alkaline Phosphatase 152 H Total Protein 6.9 Albumin 3.5 Syphilis IgG/IgM Ab Non-reactive Blood Type A Positive Antibody Screen Negative OB - PN A/P Plan day: 1 Plan: routine care Comments: No problems, routine care Time Spent With Patient Time: Total time spent is greater than 50% in coordination of care (as documented) at patient's floor/unit and/or counseling patient: Exam 2 Const: General: comfortable, no acute distress and alert Resp: Effort & Inspection: normal respiratory effort Auscultation: no crackles, no rales and no rhonchi Cardio: Rate: regular rate Heart sounds: no click, no murmurs and no rubs GI: Inspection: non-distended GI Palp: No Tenderness to palpation present (GI) Auscultation: normal bowel sounds Other: Incision - CDI Extrem: General: normal to inspection, no pedal edema and no calf tenderness
[2025-02-25 16:10] VITALS: BP 120/75; PULSE 80; RESP 16; TEMP 36.8; O2SAT 96
[2025-02-25 20:00] VITALS: BP 123/89; PULSE 101; RESP 14; TEMP 36.9; O2SAT 99
[2025-02-25] MEDS: ACETAMINOPHEN 325 MG TABLET 650 MG PO (20:45)
[2025-02-26 05:56] VITALS: BP 124/92; PULSE 79; RESP 12; TEMP 37; O2SAT 100
[2025-02-26 07:20] VITALS: BP 122/88; PULSE 83; RESP 14; TEMP 36.7
[2025-02-26] MEDS: MULTIVIT/MIN/PREN/FOL AC/IRON TABLET 1 TAB PO (07:57)
[2025-02-26] MEDS: DOCUSATE SODIUM 100 MG CAPSULE PO (07:57)
[2025-02-26] MEDS: IBUPROFEN 600 MG TABLET PO (07:58)
[2025-02-26] MEDS: ACETAMINOPHEN 325 MG TABLET 650 MG PO (07:58)
[2025-02-26] MEDS: WITCH HAZEL 40 PADS 1 PAD TOPICAL (07:59)
[2025-02-26 08:42] VITALS: PULSE 83; RESP 14; O2SAT 100
--- NOTE | 2025-02-26 09:51 | P.PNOB_ITS ---
OB - PN: Subj Subjective Date/time seen: 02/26/25 09:51 Patient comments: no complaints, pain well controlled and tolerating diet OB - PN: Obj Data Labs 02/25/25 04:52 02/24/25 13:45 OB - PN A/P Plan day: 2 Plan: routine care and discharge home Time Spent With Patient Time: Total time spent is greater than 50% in coordination of care (as documented) at patient's floor/unit and/or counseling patient: Exam 2 Const: General: comfortable and no acute distress Resp: Effort & Inspection: normal respiratory effort Auscultation: no rales, no rhonchi and no wheezes Cardio: Rate: regular rate Heart sounds: no click, no murmurs and no rubs GI: GI Palp: Yes Soft to palpation and No Tenderness to palpation present (GI) Auscultation: normal bowel sounds Extrem: General: normal to inspection, no pedal edema and no calf tenderness
--- NOTE | 2025-02-26 09:52 | P.PNOB_ITS ---
OB - PN: Subj Subjective Date/time seen: 02/26/25 09:52 Patient comments: no complaints, pain well controlled and tolerating diet OB - PN: Obj Data Labs 02/25/25 04:52 02/24/25 13:45 OB - PN A/P Plan day: 2 Plan: routine care and discharge home Time Spent With Patient Time: Total time spent is greater than 50% in coordination of care (as documented) at patient's floor/unit and/or counseling patient: Exam 2 Const: General: comfortable and no acute distress Resp: Effort & Inspection: normal respiratory effort Auscultation: no rales, no rhonchi and no wheezes Cardio: Rate: regular rate Heart sounds: no click, no murmurs and no rubs GI: GI Palp: Yes Soft to palpation and No Tenderness to palpation present (GI) Auscultation: normal bowel sounds Extrem: General: normal to inspection, no pedal edema and no calf tenderness
--- NOTE | 2025-02-26 09:53 | PM.OBDSVD ---
DS: Admitting Diagnosis Discharge Date 02/26/2025 Admitting Diagnosis Term DS: Discharge Diagnosis Discharge Diagnosis (1) Term delivered: Code(s): O80 - Encounter for full-term uncomplicated delivery Status: Acute OB - DS: Summary OB Procedures : None OB Procedures Intrapartum: Spontaneous Vag Delivery OB Procedures: : None Peripartum Data Laceration Description: None Episiotomy description: None Time Spent with Patient Time attestation: Total time spent providing and/or coordinating discharge services: Discharge Plan Discharge Consulting providers: Sherrell Ortega Discharging Clinician: Tony Deng Patient Disposition: Home Activity: pelvic rest Diet: regular Discharge Instructions: Education: Mom and Baby Guide Given to: Mother Follow-Up: Call your delivering provider's office for an appointment to be seen in: call your OB to schedule your follow up appt Mom and baby should come to the [facility] for the follow-up appointment. Appointment Date/Time: February 28, 2025 at 8:00 am What to expect at your follow-up visit: Blood Pressure Check Physical Assessment Call [phone] if you are unable to keep your appointment time. BREAST CARE: * Wear a snug supportive bra. * For engorgement discomfort: Breast Feeding: * Apply warm moist washcloths * Express milk as needed to relieve engorgement * Wear loose clothing Bottle Feeding: * May apply ice packs * For sore nipples: * Identify correct latch-on * Apply warm moist washcloths before and after nursing * Air dry nipples after nursing * May apply Lansinoh cream to nipples PERINEAL CARE: * Until bleeding stops, use your john bottle after urinating * Change your pad frequently throughout the day * You may take sitz baths several times a day (fill your bathtub with warm water and soak for 20 minutes.) Do NOT bathe in the water * No tub baths until seen by your physician - You may shower ACTIVITY: * Rest as much as possible. * Do not exercise or lift anything heavier than your baby (such as laundry or other children.) * Avoid stairs or driving as much as possible. * Do not put anything into the vagina. No douching, tampons, or sexual activity until seen by physician. NOTIFY PHYSICIAN IF YOU HAVE ANY QUESTIONS OR IF ANY OF THE FOLLOWING SYMPTOMS OCCUR: * If your episiotomy or incision becomes red, swollen, or more painful than what you have experienced in the hospital. * If your vaginal bleeding becomes foul smelling. * If your vaginal bleeding becomes more heavy than a period or if your bleeding changes from pink to bright red. However, you may pass an occasional walnut-sized clot once or twice for the first week . * If you experience a sharp, shooting pain in you calves. * If you discover a hard, reddened area on your breast or if you experience flu-like symptoms. DIET: * Eat regular, well-balanced meals. * Drink plenty of fluids daily. If , drink to thirst. Patient Instructions: Antibiotic Form Patient Language: Kyrgyz Stand Alone Forms: General Discharge Information Follow-up/Referrals: Tony Deng MD [Physician, MARKETING CONSULTANT] Discharge Medications: Continued aspirin [Adult Aspirin Regimen] 81 mg tablet,delayed release (DR/EC) 81 mg PO DAILY prenat.vits,aelena,saf-[id number] Tablet 1 tablet PO HS Date of admission: 02/24/25 13:10 Primary Care Provider: KathrineGayatri Admitting Provider: Tony Deng Attending physician on admission: Tony Deng Condition: Stable
[2025-02-28 08:18] VITALS: BP 129/88; PULSE 85; RESP 18; TEMP 37.1; O2SAT 100
== END 2025-02-26 17:15 | disposition home or self-care (01) | DRG 807 ==
LOC: ANHLDR 13:16 → ANHOB2 02-25 00:45
PROVIDERS: Admitting Provider Obstetrics & Gynecology; PCP Registered Nurse; Visit Provider Obstetrics & Gynecology
DX: O14.14 Severe pre-eclampsia complicating childbirth (principal); Z37.0 Single live birth; Z3A.38 38 weeks gestation of pregnancy; O32.6XX0 Maternal care for compound presentation, not applicable or unspecified
CPT/HCPCS: 36415; 80053; 84550; 85014; 85018; 85025; 86593; 86850; 86900; 86901; A9270; J2590; J2795; J3010; J7120